=== PATIENT | female | born 1970 | race Asian ===

== ENCOUNTER 2020-03-12 01:21 | Emergency (ER) | payer BC, OTHER ==
[~2020-03-12] VITALS: Ht 165.1 cm; Wt 51.7 kg
[2020-03-12 01:32] VITALS: Ht 165.1 cm; Wt 51.7 kg
[2020-03-12 02:51] LABS: BASOPHIL % 0.5 % (0-2); PLATELET COUNT 219 x10^3mcL (130-400); RED CELL DISTRIBUTION WIDTH 12.3 % (11.5-14.5)
[2020-03-12 03:02] LABS: CARBON DIOXIDE 34.2 mmol/L (21-32); CHLORIDE SERUM 103 mmol/L (98-107); CREATININE SERUM 0.7 mg/dL (0.6-1.0); GFR1 > 60 mL/min; GLUCOSE SERUM 113 mg/dL (74-106); POTASSIUM SERUM 3.7 mmol/L (3.5-5.1); SODIUM SERUM 137 mmol/L (136-145)
[2020-03-12 03:06] LABS: ALKALINE PHOSPHATASE 61 U/L (46-116); ALT/SGPT 11 U/L (14-59); AST/SGOT 21 U/L (15-37); BILIRUBIN TOTAL 0.37 mg/dL (0.20-1.00); TOTAL PROTEIN, SERUM 6.8 g/dL (6.4-8.2)
[2020-03-12 05:57] VITALS: BP 103/69
== END 2020-03-12 05:57 | disposition home or self-care (01) ==
LOC: ED 01:21
PROVIDERS: Emergency Medicine
DX: D25.9 Leiomyoma of uterus, unspecified (principal); E03.9 Hypothyroidism, unspecified
CPT/HCPCS: 87491; 87591; J7030; Q0092